=== PATIENT | female | born 1945 | race Caucasian/White ===

== ENCOUNTER → 2017-07-21 | Outpatient (CLI) | payer OTHER, BC ==
[~2017-07-21] MED LIST: AMLODIPINE BESY10 MG PO; ASPIRIN81 M2 PO; HYDRALAZINE 2525 MG PO; LOPRESSOR50 PO; MUCINEX TA600 MG/TA2 PO; NOVOLOG100 UNIT/1 SUBQ; SINEMET 10-1001 EAC1 PO; STOOL SOFT-STI1 EACH PO
--- NOTE | ~2017-07-21 | EKG ---
[place] [address] [address] [place] [address] ELECTROCARDIOGRAM REPORT Name: GILLIAN CONKLIN Room #: REG [facility]#: [id number] Admission: 07/21/17 Attend Phys: Radha Hayes MD Discharge: Date of : 45 Report #: [id number] THIS REPORT FOR: //name// [facility] Test Date: 2017-07-21 Test Time: 07:56:24 Pat Name: GILLIAN CONKLIN Department: Room: Gender: F Accountant Assistant: REYNOLD : 1945 Requested By: Radha Hayes Order Number: [id number] MD: Harley Bocanegra Measurements Intervals [place] Rate: 65 P: 53 OR: 172 QRS: 58 QRSD: 137 T: 1 QT: 396 QTc: 412 Interpretive Statements Sinus rhythm Right bundle branch block Baseline wander in lead(s) V3 No previous ECG available for comparison Electronically Signed On 07-22-2017 8:16:06 CDT by Harley Bocanegra [email or web address] <ELECTRONICALLY SIGNED> By: Harley Bocanegra MD, [facility] 07/22/17 0816 [id number] Harley Bocanegra MD, FACC /EPI
== END | disposition home or self-care (01) ==
LOC: LITH 07:17
DX: N20.0 Calculus of kidney (principal); I10 Essential (primary) hypertension; E78.00 Pure hypercholesterolemia, unspecified; E11.40 Type 2 diabetes mellitus with diabetic neuropathy, unspecified; G20 Parkinson's disease